=== PATIENT | female | born 1955 | race Caucasian/White ===

== ENCOUNTER 2017-09-16 12:24 | Inpatient (IN) | payer OTHER ==
[2017-09-16] MEDS: ONDANSETRON 4 MG INJ IV ×3 (12:44→18:45)
[2017-09-16] MEDS: LIDOCAINE/MYLANTA 40 ML BTL PO (12:44)
[2017-09-16] MEDS: SOD CHLORIDE 0.9% 500 ML IV (12:45)
[2017-09-16] MEDS: morphine 2 MG INJ IV ×2 (12:45→14:05)
[2017-09-16] MEDS: ASPIRIN 81 MG TAB PO (12:50)
[2017-09-16 12:51] LABS: ADD MAN DIFF? NO
[2017-09-16 12:55] LABS: WHITE BLOOD COUNT 7.4 10^3/ul (4.8-10.8)
[2017-09-16 12:55] LABS: BASOPHILS % 0.1 % (0.0-2.0); EOSINOPHILS # 0.1 10^3/ul (0.0-0.5); EOSINOPHILS % 0.8 % (0.0-7.0); HEMATOCRIT 47.8 % (37.0-47.0); LYMPHOCYTES # 0.7 10^3/ul (0.8-2.9); LYMPHOCYTES % 9.2 % (15.0-51.0); MEAN CORPUSCULAR HEMOGLOBIN 27.8 pg (29.0-33.0); MEAN CORPUSCULAR HGB CONC 31.4 g/dl (32.0-37.0); MEAN CORPUSCULAR VOLUME 88.5 fl (82.0-101.0); MEAN PLATELET VOLUME 11.2 fl (7.4-10.4); MONOCYTE # 0.5 10^3/ul (0.3-0.9); MONOCYTES % 6.8 % (0.0-11.0); NEUTROPHIL # 6.1 10^3/ul (1.6-7.5); NEUTROPHILS % 82.8 % (39.0-77.0); PLATELET COUNT 170 10^3/UL (140-415); RED CELL DISTRIBUTION WIDTH 14.4 % (11.5-14.5)
[2017-09-16 13:15] LABS: ANION GAP 9 (8-16); BLOOD UREA NITROGEN 20 mg/dl (7-20); CALCIUM 7.5 mg/dl (8.4-10.2); CARBON DIOXIDE 31 mmol/L (21-31); CHLORIDE 111 mmol/L (97-110); CREATININE 0.51 mg/dl (0.44-1.00); GLUCOSE 139 mg/dl (70-220); POTASSIUM 4.4 mmol/L (3.5-5.1); SODIUM 147 mmol/L (135-144)
[2017-09-16 13:27] LABS: B-TYPE NATRIURETIC PEPTIDE 51 PG/ML (0-125); TROPONIN-I 0.029 ng/ml (0.000-0.120)
[2017-09-16 13:47] LABS: ADD UMIC YES; UR ASCORBIC ACID NEGATIVE (NEGATIVE); UR BACTERIA FEW /HPF (NONE SEEN); UR BILIRUBIN (Dip) NEGATIVE (NEGATIVE); UR BLOOD (Dip) NEGATIVE (NEGATIVE); UR CLARITY CLEAR (CLEAR); UR COLOR YELLOW (YELLOW); UR GLUCOSE (Dip) NEGATIVE (NEGATIVE); UR KETONES (Dip) NEGATIVE (NEGATIVE); UR LEUKOCYTE ESTERASE (Dip) TRACE Leu/ul (NEGATIVE); UR NITRITE (Dip) POSITIVE (NEGATIVE); UR RBC 1 /HPF (0-5); UR TOTAL PROTEIN (Dip) NEGATIVE (NEGATIVE); UR UROBILINOGEN (Dip) 2+ mg/dL (NEGATIVE); UR WBC 17 /HPF (0-5)
[2017-09-16] MEDS: ACETAMINOPHEN 500 MG TAB PO (14:05)
[2017-09-16] MEDS: KETOROLAC 30 MG INJ IV (14:09)
[2017-09-16] MEDS: METOCLOPRAMIDE 10 MG INJ IV (14:14)
[2017-09-16] MEDS: DIPHENHYDRAMINE 50 MG INJ IV (16:19)
[2017-09-16] MEDS: CEFTRIAXONE 1 GM/50 ML (PMX) 50 ML IVPB (16:19)
[2017-09-16] MEDS ORDERED: ALBUTEROL HFA 8 GM INHALER INH (17:00)
[2017-09-16] MEDS ORDERED: CYCLOBENZAPRINE 10 MG TAB PO (17:00)
[2017-09-16] MEDS ORDERED: MAGNESIUM HYDROXIDE 30ML CUP PO (17:30)
[2017-09-16] MEDS ORDERED: BISACODYL (EC) 5 MG TAB PO (17:30)
[2017-09-16] MEDS ORDERED: NACL 0.9% 3 ML SYG IV (17:30)
[2017-09-16] MEDS ORDERED: DOCUSATE SODIUM 100 MG CAP PO (17:30)
[2017-09-16] MEDS ORDERED: GLUCOSE GEL 15 GRAM TUBE BUCCAL (18:00)
[2017-09-16] MEDS ORDERED: GLUCAGON 1 MG INJ IM (18:00)
[2017-09-16] MEDS ORDERED: GLUCOSE GEL 15 GRAM TUBE PO ×2 (18:00)
[2017-09-16] MEDS ORDERED: DEXTROSE 50% 50 ML SYRINGE IV ×2 (18:00)
[2017-09-16] MEDS: SOD CHLORIDE 0.45% 1,000 ML IV (18:44)
[2017-09-16 18:56] LABS: CREATINE KINASE 25 IU/L (23-200)
[2017-09-16 19:09] LABS: CK INDEX 1.4; CK-MB 0.36 ng/ml (0.0-2.4)
[2017-09-16 19:10] LABS: TROPONIN-I < 0.012 ng/ml (0.000-0.120)
[2017-09-16] MEDS: DOCUSATE SODIUM 100 MG CAP PO (20:24)
[2017-09-16] MEDS: GABAPENTIN 300 MG CAP PO (20:24)
[2017-09-16] MEDS: MONTELUKAST 10 MG TAB PO (20:24)
[2017-09-16] MEDS: PROPRANOLOL 10 MG TAB PO (20:24)
[2017-09-16] MEDS: INSULIN ASPART [NOVOLOG] 3 ML PEN SC (20:30)
[2017-09-17 00:56] LABS: CREATINE KINASE 22 IU/L (23-200)
[2017-09-17 01:08] LABS: CK INDEX 1.7; CK-MB 0.38 ng/ml (0.0-2.4); TROPONIN-I < 0.012 ng/ml (0.000-0.120)
[2017-09-17] MEDS: ACCU-CHEK XX (02:00)
[2017-09-17] MEDS: PANTOPRAZOLE 40 MG INJ IV (05:10)
[2017-09-17 06:12] LABS: ADD MAN DIFF? NO
[2017-09-17 06:24] LABS: BASOPHILS % 0.3 % (0.0-2.0); EOSINOPHILS # 0.1 10^3/ul (0.0-0.5); EOSINOPHILS % 1.6 % (0.0-7.0); HEMATOCRIT 48.4 % (37.0-47.0); HEMOGLOBIN 14.3 g/dl (12.0-16.0); LYMPHOCYTES # 0.7 10^3/ul (0.8-2.9); LYMPHOCYTES % 10.7 % (15.0-51.0); MEAN CORPUSCULAR HEMOGLOBIN 27.5 pg (29.0-33.0); MEAN CORPUSCULAR HGB CONC 29.5 g/dl (32.0-37.0); MEAN CORPUSCULAR VOLUME 93.1 fl (82.0-101.0); MEAN PLATELET VOLUME 10.7 fl (7.4-10.4); MONOCYTE # 0.5 10^3/ul (0.3-0.9); MONOCYTES % 7.5 % (0.0-11.0); NEUTROPHIL # 4.9 10^3/ul (1.6-7.5); NEUTROPHILS % 79.4 % (39.0-77.0); PLATELET COUNT 180 10^3/UL (140-415); RED CELL DISTRIBUTION WIDTH 14.3 % (11.5-14.5)
[2017-09-17 06:24] LABS: WHITE BLOOD COUNT 6.2 10^3/ul (4.8-10.8)
[2017-09-17 06:41] LABS: CREATINE KINASE 21 IU/L (23-200)
[2017-09-17 06:53] LABS: CK INDEX 1.4; CK-MB 0.29 ng/ml (0.0-2.4)
[2017-09-17 06:54] LABS: ALANINE AMINOTRANSFERASE 43 IU/L (13-69); ALBUMIN 3.3 g/dl (3.3-4.9); ALBUMIN/GLOBULIN RATIO 1.03; ALKALINE PHOSPHATASE 111 IU/L (42-121); ANION GAP 11 (8-16); ASPARTATE AMINO TRANSFERASE 28 IU/L (15-46); BILIRUBIN,INDIRECT 0.4 mg/dl (0-1.1); BILIRUBIN,TOTAL 0.4 mg/dl (0.2-1.3); BLOOD UREA NITROGEN 18 mg/dl (7-20); CALCIUM 8.4 mg/dl (8.4-10.2); CARBON DIOXIDE 39 mmol/L (21-31); CHLORIDE 104 mmol/L (97-110); CREATININE 0.75 mg/dl (0.44-1.00); GLUCOSE 119 mg/dl (70-220); POTASSIUM 4.9 mmol/L (3.5-5.1); SODIUM 149 mmol/L (135-144); TOTAL PROTEIN 6.5 g/dl (6.1-8.1)
[2017-09-17 06:58] LABS: TROPONIN-I < 0.012 ng/ml (0.000-0.120)
[2017-09-17] MEDS: INSULIN ASPART [NOVOLOG] 3 ML PEN SC ×4 (07:55→21:00)
[2017-09-17] MEDS: ASPIRIN (EC) 81 MG TAB PO (08:24)
[2017-09-17] MEDS: DOCUSATE SODIUM 100 MG CAP PO ×2 (08:24→21:58)
[2017-09-17] MEDS: PIOGLITAZONE 30 MG TAB PO (08:24)
[2017-09-17] MEDS: PROPRANOLOL 10 MG TAB PO ×2 (08:24→21:59)
[2017-09-17] MEDS: FERROUS SULFATE (EC) 325 MG TAB PO (08:25)
[2017-09-17] MEDS: GABAPENTIN 300 MG CAP PO ×2 (08:25→21:59)
[2017-09-17] MEDS: OXYBUTYNIN (XL) 5 MG TAB PO (08:25)
[2017-09-17] MEDS: ENOXAPARIN 40 MG/0.4 ML SYG SC (08:37)
[2017-09-17] MEDS ORDERED: ASPIRIN (EC) 81 MG TAB PO (09:00)
[2017-09-17 09:01] LABS: HEMOGLOBIN A1C 5.9 % (0-5.9)
[2017-09-17] MEDS: ACETAMINOPHEN 325 MG TAB PO ×2 (11:15→22:01)
[2017-09-17] MEDS: MECLIZINE 25 MG TAB PO (12:20)
[2017-09-17] MEDS: SOD CHLORIDE 0.45% 1,000 ML IV (13:02)
[2017-09-17] MEDS: ALBUTEROL 0.083% (NEB) 2.5 MG/3 ML AMP NEB (15:44)
[2017-09-17] MEDS: CEFTRIAXONE 1 GM/50 ML (PMX) 50 ML IVPB (15:50)
[2017-09-17] MEDS: MONTELUKAST 10 MG TAB PO (21:58)
[2017-09-18] MEDS: ACCU-CHEK XX (02:00)
[2017-09-18] MEDS: PANTOPRAZOLE 40 MG INJ IV (05:43)
[2017-09-18] MEDS: SOD CHLORIDE 0.45% 1,000 ML IV ×2 (07:36→09:02)
[2017-09-18] MEDS: INSULIN ASPART [NOVOLOG] 3 ML PEN SC ×4 (07:55→21:00)
[2017-09-18 08:01] LABS: ADD MAN DIFF? NO
[2017-09-18] MEDS: PIOGLITAZONE 30 MG TAB PO (08:28)
[2017-09-18] MEDS: ACETAMINOPHEN 325 MG TAB PO (08:28)
[2017-09-18] MEDS: GABAPENTIN 300 MG CAP PO ×2 (08:28→21:12)
[2017-09-18] MEDS: DOCUSATE SODIUM 100 MG CAP PO ×2 (08:29→21:12)
[2017-09-18] MEDS: OXYBUTYNIN (XL) 5 MG TAB PO (08:29)
[2017-09-18] MEDS: FERROUS SULFATE (EC) 325 MG TAB PO (08:29)
[2017-09-18] MEDS: ASPIRIN (EC) 81 MG TAB PO (08:29)
[2017-09-18] MEDS: PROPRANOLOL 10 MG TAB PO ×2 (08:29→21:16)
[2017-09-18 08:32] LABS: ALANINE AMINOTRANSFERASE 39 IU/L (13-69); ALBUMIN 3.4 g/dl (3.3-4.9); ALBUMIN/GLOBULIN RATIO 1.03; ALKALINE PHOSPHATASE 113 IU/L (42-121); ANION GAP 12 (8-16); ASPARTATE AMINO TRANSFERASE 25 IU/L (15-46); BILIRUBIN,INDIRECT 0.4 mg/dl (0-1.1); BILIRUBIN,TOTAL 0.4 mg/dl (0.2-1.3); BLOOD UREA NITROGEN 16 mg/dl (7-20); CALCIUM 8.5 mg/dl (8.4-10.2); CARBON DIOXIDE 37 mmol/L (21-31); CHLORIDE 99 mmol/L (97-110); CREATININE 0.62 mg/dl (0.44-1.00); GLUCOSE 123 mg/dl (70-220); POTASSIUM 4.3 mmol/L (3.5-5.1); SODIUM 144 mmol/L (135-144); TOTAL PROTEIN 6.7 g/dl (6.1-8.1)
[2017-09-18 09:47] LABS: BASOPHILS % 0.5 % (0.0-2.0); EOSINOPHILS # 0.1 10^3/ul (0.0-0.5); EOSINOPHILS % 1.4 % (0.0-7.0); HEMATOCRIT 47.2 % (37.0-47.0); LYMPHOCYTES # 0.8 10^3/ul (0.8-2.9); MEAN CORPUSCULAR HEMOGLOBIN 27.6 pg (29.0-33.0); MEAN CORPUSCULAR HGB CONC 29.7 g/dl (32.0-37.0); MEAN CORPUSCULAR VOLUME 92.9 fl (82.0-101.0); MONOCYTE # 0.5 10^3/ul (0.3-0.9); MONOCYTES % 7.8 % (0.0-11.0); NEUTROPHIL # 4.9 10^3/ul (1.6-7.5); NEUTROPHILS % 76.7 % (39.0-77.0); PLATELET COUNT 161 10^3/UL (140-415); RED BLOOD COUNT 5.08 10^6/ul (4.20-5.40); RED CELL DISTRIBUTION WIDTH 13.9 % (11.5-14.5)
[2017-09-18 09:47] LABS: WHITE BLOOD COUNT 6.4 10^3/ul (4.8-10.8)
[2017-09-18] MEDS: ENOXAPARIN 40 MG/0.4 ML SYG SC (09:50)
[2017-09-18] MEDS: CEFTRIAXONE 1 GM/50 ML (PMX) 50 ML IVPB (17:05)
[2017-09-18] MEDS: FUROSEMIDE 40 MG INJ IV (17:06)
[2017-09-18 17:31] LABS: AADO2 Arterial 11.7 mmHg (7.0-24.0); Allen Test ACCEPTAB; Arterial Base Excess 6.9 mmol/L (-3.0-3); Arterial Blood Gas Oxygen Sat 91.3 mmHG (95.0-98.0); Arterial COHb 0.8 % (0.0-3.0); Arterial Fraction of Oxyhgb 90.3 % (93.0-99.0); Arterial MetHb 0.3 % (0.0-1.5); Arterial Total Hemglobin 14.9 g/dl (12.0-18.0); Arterial pCO2 64.9 mmhg (35-45); MODE ROOM AIR; Site Right Radial
[2017-09-18] MEDS: MONTELUKAST 10 MG TAB PO (21:12)
[2017-09-19] MEDS: ACCU-CHEK XX (02:00)
[2017-09-19] MEDS: PANTOPRAZOLE 40 MG INJ IV (06:58)
[2017-09-19 07:40] LABS: ADD MAN DIFF? NO
[2017-09-19 07:46] LABS: BASOPHILS % 0.3 % (0.0-2.0); EOSINOPHILS # 0.1 10^3/ul (0.0-0.5); EOSINOPHILS % 1.6 % (0.0-7.0); HEMATOCRIT 45.1 % (37.0-47.0); HEMOGLOBIN 13.9 g/dl (12.0-16.0); LYMPHOCYTES % 15.7 % (15.0-51.0); MEAN CORPUSCULAR HEMOGLOBIN 27.8 pg (29.0-33.0); MEAN CORPUSCULAR HGB CONC 30.8 g/dl (32.0-37.0); MEAN CORPUSCULAR VOLUME 90.2 fl (82.0-101.0); MEAN PLATELET VOLUME 10.7 fl (7.4-10.4); MONOCYTE # 0.6 10^3/ul (0.3-0.9); MONOCYTES % 9.3 % (0.0-11.0); NEUTROPHIL # 4.5 10^3/ul (1.6-7.5); NEUTROPHILS % 72.8 % (39.0-77.0); PLATELET COUNT 146 10^3/UL (140-415); RED CELL DISTRIBUTION WIDTH 13.7 % (11.5-14.5)
[2017-09-19 07:46] LABS: WHITE BLOOD COUNT 6.2 10^3/ul (4.8-10.8)
[2017-09-19] MEDS: INSULIN ASPART [NOVOLOG] 3 ML PEN SC ×4 (07:55→20:18)
[2017-09-19 08:07] LABS: ANION GAP 13 (8-16); BLOOD UREA NITROGEN 22 mg/dl (7-20); CALCIUM 8.5 mg/dl (8.4-10.2); CARBON DIOXIDE 34 mmol/L (21-31); CHLORIDE 99 mmol/L (97-110); CREATININE 0.62 mg/dl (0.44-1.00); GLUCOSE 92 mg/dl (70-220); POTASSIUM 5.9 mmol/L (3.5-5.1); SODIUM 140 mmol/L (135-144)
[2017-09-19 08:14] LABS: PHOSPHORUS 3.1 mg/dl (2.5-4.9)
[2017-09-19] MEDS: PIOGLITAZONE 30 MG TAB PO (09:18)
[2017-09-19] MEDS: GABAPENTIN 300 MG CAP PO ×2 (09:19→20:16)
[2017-09-19] MEDS: ASPIRIN (EC) 81 MG TAB PO (09:19)
[2017-09-19] MEDS: DOCUSATE SODIUM 100 MG CAP PO ×2 (09:19→20:17)
[2017-09-19] MEDS: PROPRANOLOL 10 MG TAB PO ×2 (09:19→20:17)
[2017-09-19] MEDS: OXYBUTYNIN (XL) 5 MG TAB PO (09:19)
[2017-09-19] MEDS: FERROUS SULFATE (EC) 325 MG TAB PO (09:19)
[2017-09-19] MEDS: ENOXAPARIN 40 MG/0.4 ML SYG SC (09:40)
[2017-09-19 12:42] LABS: POTASSIUM 4.1 mmol/L (3.5-5.1)
[2017-09-19] MEDS: ACETAMINOPHEN 325 MG TAB PO (15:04)
[2017-09-19] MEDS: CIPROFLOXACIN 500 MG TAB PO (17:52)
[2017-09-19] MEDS: FUROSEMIDE 40 MG INJ IV (17:52)
[2017-09-19] MEDS: MONTELUKAST 10 MG TAB PO (20:17)
[2017-09-20] MEDS: ACCU-CHEK XX (02:00)
[2017-09-20] MEDS: CIPROFLOXACIN 500 MG TAB PO ×2 (06:15→17:43)
[2017-09-20] MEDS: PANTOPRAZOLE 40 MG INJ IV (06:16)
[2017-09-20 07:21] LABS: CHOLESTEROL 144 mg/dl (100-200)
[2017-09-20 07:21] LABS: CHOL/HDL RATIO 3.7 RATIO; HDL CHOLESTEROL 38 mg/dl (35-98); LDL CHOLESTEROL,CALCULATED 77 mg/dl; TRIGLYCERIDES 145 mg/dl (0-149)
[2017-09-20] MEDS: INSULIN ASPART [NOVOLOG] 3 ML PEN SC ×4 (07:55→21:02)
[2017-09-20] MEDS: GABAPENTIN 300 MG CAP PO ×2 (08:18→20:56)
[2017-09-20] MEDS: DOCUSATE SODIUM 100 MG CAP PO ×2 (08:18→20:56)
[2017-09-20] MEDS: PROPRANOLOL 10 MG TAB PO ×2 (08:18→20:56)
[2017-09-20] MEDS: OXYBUTYNIN (XL) 5 MG TAB PO (08:18)
[2017-09-20] MEDS: FERROUS SULFATE (EC) 325 MG TAB PO (08:18)
[2017-09-20] MEDS: PIOGLITAZONE 30 MG TAB PO (08:18)
[2017-09-20] MEDS: ASPIRIN (EC) 81 MG TAB PO (08:18)
[2017-09-20] MEDS: ENOXAPARIN 40 MG/0.4 ML SYG SC (08:23)
[2017-09-20] MEDS: FUROSEMIDE 40 MG INJ IV (12:36)
[2017-09-20] MEDS: MONTELUKAST 10 MG TAB PO (20:56)
[2017-09-21] MEDS: ACCU-CHEK XX (01:57)
[2017-09-21] MEDS: PANTOPRAZOLE 40 MG INJ IV (05:07)
[2017-09-21] MEDS: CIPROFLOXACIN 500 MG TAB PO ×2 (05:07→17:31)
[2017-09-21 06:07] LABS: ADD MAN DIFF? NO
[2017-09-21 06:09] LABS: WHITE BLOOD COUNT 6.6 10^3/ul (4.8-10.8)
[2017-09-21 06:09] LABS: BASOPHILS % 0.3 % (0.0-2.0); EOSINOPHILS # 0.1 10^3/ul (0.0-0.5); EOSINOPHILS % 1.4 % (0.0-7.0); HEMATOCRIT 45.7 % (37.0-47.0); LYMPHOCYTES # 0.8 10^3/ul (0.8-2.9); LYMPHOCYTES % 12.8 % (15.0-51.0); MEAN CORPUSCULAR HEMOGLOBIN 27.6 pg (29.0-33.0); MEAN CORPUSCULAR HGB CONC 30.6 g/dl (32.0-37.0); MEAN CORPUSCULAR VOLUME 90.1 fl (82.0-101.0); MEAN PLATELET VOLUME 10.3 fl (7.4-10.4); MONOCYTE # 0.6 10^3/ul (0.3-0.9); MONOCYTES % 8.5 % (0.0-11.0); NEUTROPHILS % 76.7 % (39.0-77.0); PLATELET COUNT 164 10^3/UL (140-415); RED BLOOD COUNT 5.07 10^6/ul (4.20-5.40); RED CELL DISTRIBUTION WIDTH 14.2 % (11.5-14.5)
[2017-09-21 06:44] LABS: MAGNESIUM 2.2 mg/dl (1.7-2.5)
[2017-09-21 06:44] LABS: PHOSPHORUS 4.3 mg/dl (2.5-4.9)
[2017-09-21 06:46] LABS: BLOOD UREA NITROGEN 24 mg/dl (7-20); CALCIUM 9.1 mg/dl (8.4-10.2); CHLORIDE 98 mmol/L (97-110); CREATININE 0.75 mg/dl (0.44-1.00); GLUCOSE 122 mg/dl (70-220); POTASSIUM 4.4 mmol/L (3.5-5.1); SODIUM 146 mmol/L (135-144)
[2017-09-21 07:05] LABS: ANION GAP 8 (8-16)
[2017-09-21 07:11] LABS: CARBON DIOXIDE 44 mmol/L (21-31)
[2017-09-21] MEDS: INSULIN ASPART [NOVOLOG] 3 ML PEN SC ×4 (07:55→20:47)
[2017-09-21] MEDS: ASPIRIN (EC) 81 MG TAB PO (08:47)
[2017-09-21] MEDS: FERROUS SULFATE (EC) 325 MG TAB PO (08:47)
[2017-09-21] MEDS: GABAPENTIN 300 MG CAP PO ×2 (08:47→20:45)
[2017-09-21] MEDS: DOCUSATE SODIUM 100 MG CAP PO ×2 (08:47→20:45)
[2017-09-21] MEDS: PROPRANOLOL 10 MG TAB PO ×2 (08:48→20:46)
[2017-09-21] MEDS: PIOGLITAZONE 30 MG TAB PO (08:48)
[2017-09-21] MEDS: ENOXAPARIN 40 MG/0.4 ML SYG SC (08:51)
[2017-09-21] MEDS: OXYBUTYNIN (XL) 5 MG TAB PO (08:53)
[2017-09-21 10:31] LABS: AADO2 Arterial 20.6 mmHg (7.0-24.0); Allen Test ACCEPTAB; Arterial Base Excess 8.3 mmol/L (-3.0-3); Arterial Blood Gas Oxygen Sat 92.3 mmHG (95.0-98.0); Arterial COHb 1.2 % (0.0-3.0); Arterial HCO3 34.9 mmol/L (22.0-26.0); Arterial MetHb 0.2 % (0.0-1.5); Arterial Total Hemglobin 15.8 g/dl (12.0-18.0); Arterial pCO2 55.5 mmhg (35-45); MODE ROOM AIR; Site Left Radial
[2017-09-21] MEDS: ACETAZOLAMIDE 250 MG TAB PO (20:45)
[2017-09-21] MEDS: MONTELUKAST 10 MG TAB PO (20:46)
[2017-09-22] MEDS: ACCU-CHEK XX (02:00)
[2017-09-22] MEDS: CIPROFLOXACIN 500 MG TAB PO (05:56)
[2017-09-22] MEDS: PANTOPRAZOLE 40 MG INJ IV (05:56)
[2017-09-22] MEDS: INSULIN ASPART [NOVOLOG] 3 ML PEN SC ×2 (07:55→11:48)
[2017-09-22] MEDS: PROPRANOLOL 10 MG TAB PO (08:02)
[2017-09-22] MEDS: OXYBUTYNIN (XL) 5 MG TAB PO (08:02)
[2017-09-22] MEDS: PIOGLITAZONE 30 MG TAB PO (08:02)
[2017-09-22] MEDS: DOCUSATE SODIUM 100 MG CAP PO (08:02)
[2017-09-22] MEDS: ACETAZOLAMIDE 250 MG TAB PO (08:02)
[2017-09-22] MEDS: ASPIRIN (EC) 81 MG TAB PO (08:03)
[2017-09-22] MEDS: FERROUS SULFATE (EC) 325 MG TAB PO (08:03)
[2017-09-22] MEDS: GABAPENTIN 300 MG CAP PO (08:03)
[2017-09-22] MEDS: ENOXAPARIN 40 MG/0.4 ML SYG SC (08:11)
[2017-09-22 09:24] LABS: ANION GAP 16 (8-16); BLOOD UREA NITROGEN 22 mg/dl (7-20); CALCIUM 9.4 mg/dl (8.4-10.2); CARBON DIOXIDE 34 mmol/L (21-31); CHLORIDE 99 mmol/L (97-110); CREATININE 0.97 mg/dl (0.44-1.00); GLUCOSE 123 mg/dl (70-220); POTASSIUM 4.9 mmol/L (3.5-5.1); SODIUM 144 mmol/L (135-144)
== END 2017-09-22 16:39 | disposition home or self-care (01) | DRG 682 ==
LOC: E/R 12:24 → TEL 16:28
DX: N17.9 Acute kidney failure, unspecified (principal); J18.9 Pneumonia, unspecified organism; J96.01 Acute respiratory failure with hypoxia; J96.02 Acute respiratory failure with hypercapnia; I50.33 Acute on chronic diastolic (congestive) heart failure; E87.1 Hypo-osmolality and hyponatremia; N39.0 Urinary tract infection, site not specified; E66.2 Morbid (severe) obesity with alveolar hypoventilation; Z68.43 Body mass index [BMI] 50.0-59.9, adult; E86.0 Dehydration; G51.0 Bell's palsy; E11.9 Type 2 diabetes mellitus without complications; Z90.49 Acquired absence of other specified parts of digestive tract; G47.33 Obstructive sleep apnea (adult) (pediatric); E78.5 Hyperlipidemia, unspecified; Z86.73 Personal history of transient ischemic attack (TIA), and cerebral infarction without residual deficits; I11.0 Hypertensive heart disease with heart failure; I50.9 Heart failure, unspecified; E87.5 Hyperkalemia; Z86.011 Personal history of benign neoplasm of the brain; B96.1 Klebsiella pneumoniae [K. pneumoniae] as the cause of diseases classified elsewhere
CPT/HCPCS: 36415; 36600; 70450; 71045; 80048; 80053; 80061; 81001; 82550; 82553; 82803; 82962; 83036; 83735; 83880; 84100; 84132; 84484; 85025; 87086; 93005; 93306; 94660; 94664; 96374; 96375; 96376; 99285-25

== ENCOUNTER 2018-07-22 20:11 | Emergency (ER) | payer OTHER ==
[2018-07-22] MEDS: KETOROLAC 30 MG INJ IM (22:32)
== END 2018-07-22 23:32 | disposition home or self-care (01) ==
LOC: FTE 20:11
DX: M75.91 Shoulder lesion, unspecified, right shoulder (principal); J45.909 Unspecified asthma, uncomplicated; Z79.84 Long term (current) use of oral hypoglycemic drugs; Z79.82 Long term (current) use of aspirin
CPT/HCPCS: 71046; 93005; 96372; 99284-25

== ENCOUNTER 2018-07-26 10:28 | Emergency (ER) | payer OTHER ==
[2018-07-26] MEDS: KETOROLAC 30 MG INJ IM (11:27)
== END 2018-07-26 12:10 | disposition home or self-care (01) ==
LOC: FTE 10:28
DX: M79.601 Pain in right arm (principal); M54.5 Low back pain; J45.909 Unspecified asthma, uncomplicated; I10 Essential (primary) hypertension; E11.9 Type 2 diabetes mellitus without complications; Z79.82 Long term (current) use of aspirin; Z79.84 Long term (current) use of oral hypoglycemic drugs
CPT/HCPCS: 96372; 99284-25